=== PATIENT | male | born 1935 | race Two or more races ===

== ENCOUNTER 2020-04-14 08:29 | Inpatient (IN) | payer OTHER ==
[~2020-04-14] VITALS: Ht 170.2 cm; Wt 74.8 kg
[2020-04-17] MEDS ORDERED: AMLODIPINE PO (14:12)
[2020-04-17] MEDS ORDERED: ENALAPRIL MALEA20 MG PO (14:13)
[2020-04-17] MEDS ORDERED: SIMVASTAT PO (14:13)
[2020-04-17] MEDS ORDERED: FINASTERIDE5 MG PO (14:14)
[2020-04-17] MEDS ORDERED: FOSAMAX PO (14:14)
[2020-04-20] MEDS ORDERED: AMLODIPINE BESYL5 MG PO (11:23)
[2020-04-20] MEDS ORDERED: FOSAMAX70 MG PO (11:23)
[2020-04-20] MEDS ORDERED: ZOCOR20 MG PO (11:24)
[2020-05-01] MEDS ORDERED: ULTRACET PO (14:00)
[2020-05-01] MEDS ORDERED: INTESTINEX680 M1 PO (14:00)
== END 2020-05-01 14:43 | disposition home or self-care (01) | DRG 329 ==
LOC: SURG 04-20 08:32 → O/R 04-20 08:32 → SURH 04-20 10:00 → SURG 04-20 16:56
PROVIDERS: ADMIT Surgery; ATTEND Surgery
PROC: 07BC4ZX Excision of Pelvis Lymphatic, Percutaneous Endoscopic Approach, Diagnostic (ICD-10-PCS; 2020-04-20)
PROC: 0DTF4ZZ Resection of Right Large Intestine, Percutaneous Endoscopic Approach (ICD-10-PCS; principal; 2020-04-20 15:30)
PROC: 3E0F7SF Introduction of Other Gas into Respiratory Tract, Via Natural or Artificial Opening (ICD-10-PCS; 2020-04-23)
PROC: 4A033R1 Measurement of Arterial Saturation, Peripheral, Percutaneous Approach (ICD-10-PCS; 2020-04-24)
PROC: 5A1955Z Respiratory Ventilation, Greater than 96 Consecutive Hours (ICD-10-PCS; 2020-04-25)
PROC: CB2YYZZ Tomographic (Tomo) Nuclear Medicine Imaging of Respiratory System using Other Radionuclide (ICD-10-PCS; 2020-04-25)
PROC: CB2YYZZ Tomographic (Tomo) Nuclear Medicine Imaging of Respiratory System using Other Radionuclide (ICD-10-PCS; 2020-04-26)
DX: C18.0 Malignant neoplasm of cecum (principal); J18.9 Pneumonia, unspecified organism; J98.11 Atelectasis; E87.0 Hyperosmolality and hypernatremia; L03.311 Cellulitis of abdominal wall; K56.7 Ileus, unspecified; T81.43XA Infection following a procedure, organ and space surgical site, initial encounter; R09.02 Hypoxemia; Z20.828 Contact with and (suspected) exposure to other viral communicable diseases; Y83.8 Other surgical procedures as the cause of abnormal reaction of the patient, or of later complication, without mention of misadventure at the time of the procedure; D50.8 Other iron deficiency anemias

== ENCOUNTER 2020-04-17 13:45 | Outpatient (CLI) | payer OTHER ==
[2020-04-17] MEDS ORDERED: AMLODIPINE PO (14:12)
[2020-04-17] MEDS ORDERED: ENALAPRIL MALEA20 MG PO (14:13)
[2020-04-17] MEDS ORDERED: SIMVASTAT PO (14:13)
[2020-04-17] MEDS ORDERED: FOSAMAX PO (14:14)
[2020-04-17] MEDS ORDERED: FINASTERIDE5 MG PO (14:14)
== END 2020-04-17 14:01 | disposition home or self-care (01) ==
LOC: TOM 13:45
PROVIDERS: ATTEND Surgery
DX: C18.0 Malignant neoplasm of cecum (principal); R19.4 Change in bowel habit; D50.0 Iron deficiency anemia secondary to blood loss (chronic); R59.0 Localized enlarged lymph nodes